=== PATIENT | male | born 1980 | race Caucasian/White ===

== ENCOUNTER → 2016-12-31 | Outpatient (CLI) | payer OTHER | DX: Z02.1 Encounter for pre-employment examination (principal) | CPT/HCPCS: 36415; 86735; 86762; 86765 ==

== ENCOUNTER → 2017-01-22 | Outpatient (CLI) | payer BC | LOC: LAB 09:06 | DX: R68.82 Decreased libido (principal) | CPT/HCPCS: 84403 ==

== ENCOUNTER → 2017-01-30 | Outpatient (CLI) | payer BC | LOC: KOH-I 13:00 | DX: N50.812 Left testicular pain (principal); N50.3 Cyst of epididymis | CPT/HCPCS: 76870 ==

== ENCOUNTER → 2017-04-07 | Outpatient (CLI) | payer BC ==
[2017-04-07 10:34] LABS: HEMOGLOBIN 14.9 gm/dl (14.0-17.5); RED BLOOD COUNT 4.92 M/UL (4.20-5.50)
[2017-04-07 10:57] LABS: BUN/CREATININE RATIO 19 (0-10)
== END ==
LOC: LAB 10:11
PROVIDERS: Emergency Medicine
DX: R10.9 Unspecified abdominal pain (principal)
CPT/HCPCS: 80053; 83690; 85027